=== PATIENT | male | born 1960 | race Caucasian/White ===

== ENCOUNTER 2021-03-06 14:17 | Emergency (ER) | payer MEDICARE, OTHER ==
[~2021-03-06] VITALS: Ht 188 cm; Wt 132.4 kg
--- NOTE | 2021-03-06 14:20 | NUR ---
at bedside for assessment
[2021-03-06] MEDS ORDERED: MECLIZINE HCL 25 MG TABLET PO ONE (14:30)
[2021-03-06] MEDS ORDERED: IV NORMAL SALINE 1000 ML BAG IV ONE (14:30)
[2021-03-06] MEDS ORDERED: ONDANSETRON HCL 4 MG TABLET PO ONE (14:30)
[2021-03-06] MEDS ORDERED: diphenhydrAMINE 50 MG/1 ML VIAL IV ONE (14:45)
[2021-03-06] MEDS ORDERED: METOCLOPRAMIDE HCL 10 MG/2 ML VIAL IV ONE (14:45)
[2021-03-06] MEDS ORDERED: MECLIZINE HCL 25 MG TABLET ONE (14:49)
[2021-03-06] MEDS ORDERED: diphenhydrAMINE 50 MG/1 ML VIAL ONE (14:49)
[2021-03-06] MEDS ORDERED: ONDANSETRON ODT 4 MG TAB.RAPDIS ONE (14:49)
[2021-03-06] MEDS ORDERED: METOCLOPRAMIDE HCL 10 MG/2 ML VIAL ONE (14:50)
--- NOTE | 2021-03-06 14:56 | NUR ---
Patient taken to Radiology for CT
[2021-03-06] MEDS ORDERED: BUSP10TA3 PO (15:05)
[2021-03-06] MEDS ORDERED: GABA600T12 PO (15:05)
[2021-03-06] MEDS ORDERED: ASPI81TA31 PO (15:05)
[2021-03-06] MEDS ORDERED: LORA2TAB95 PO (15:05)
[2021-03-06] MEDS ORDERED: TAMS-3 PO (15:05)
[2021-03-06] MEDS ORDERED: ELVI1TAB3 PO (15:05)
[2021-03-06] MEDS ORDERED: FAMO20TA8 PO (15:05)
[2021-03-06] MEDS ORDERED: OMEG1CAP PO (15:05)
[2021-03-06] MEDS ORDERED: LORA10TA7 PO (15:05)
[2021-03-06] MEDS ORDERED: LURA40TA PO (15:05)
[2021-03-06] MEDS ORDERED: ISOS60TA72 PO (15:05)
[2021-03-06] MEDS ORDERED: NITR0.4T48 SL (15:05)
[2021-03-06 15:11] LABS: HEMATOCRIT 43.8 % (36.7-47.1); MEAN CORPUSCULAR VOLUME 95.1 fL (73.0-96.2); PLATELET COUNT (AUTO) 184 K/uL (152-348)
[2021-03-06] MEDS ORDERED: ALBU2.5V13 IH (15:20)
[2021-03-06] MEDS ORDERED: MIRT-93 PO (15:20)
[2021-03-06] MEDS ORDERED: ATOR20TA PO (15:20)
[2021-03-06] MEDS ORDERED: LOPE2CAP PO (15:20)
[2021-03-06 15:27] LABS: CREATININE 1.1 mg/dL (0.6-1.3); POTASSIUM 3.5 mmol/L (3.5-5.1)
[2021-03-06] MEDS ORDERED: KETOROLAC TROMETHAMINE 30 MG INJ IVP ONE (15:30)
[2021-03-06] MEDS ORDERED: KETOROLAC TROMETHAMINE 30 MG INJ ONE (15:35)
[2021-03-06 15:39] LABS: BILIRUBIN,TOTAL 0.4 mg/dL (0.2-1.0); TOTAL PROTEIN, SERUM 6.8 g/dL (6.4-8.2)
[2021-03-06] MEDS ORDERED: MECL-159 PO (16:17)
--- NOTE | 2021-03-06 16:29 | NUR ---
Called [facility] for transport back to [facility], eta 40 mins.
--- NOTE | 2021-03-06 18:12 | NUR ---
PAtient continues to resting in bed, no signs of acute distress noted
--- NOTE | 2021-03-06 18:58 | NUR ---
Patient noted getting picked up by [facility] and will be returning to center at [facility]
[2021-03-06 19:03] VITALS: BP 122/74
== END 2021-03-06 19:00 ==
LOC: ER 14:17
DX: R51.9 Headache, unspecified (principal); R42 Dizziness and giddiness; J44.9 Chronic obstructive pulmonary disease, unspecified; F31.9 Bipolar disorder, unspecified; E78.5 Hyperlipidemia, unspecified; E66.01 Morbid (severe) obesity due to excess calories; Z68.37 Body mass index [BMI] 37.0-37.9, adult; Z86.711 Personal history of pulmonary embolism; I10 Essential (primary) hypertension; Z90.49 Acquired absence of other specified parts of digestive tract; G20 Parkinson's disease; F17.201 Nicotine dependence, unspecified, in remission; Z79.82 Long term (current) use of aspirin
CPT/HCPCS: 36415; 70450; 71045; 80053; 84484; 85025; 93005; 96361; 96374; 96375; 99285; J1200; J1885; J2765; 70030-TC; A4663; J7030; J8597; Q0162

== ENCOUNTER 2021-09-10 19:50 | Emergency (ER) | payer MEDICARE, OTHER ==
[~2021-09-10] VITALS: Ht 188 cm; Wt 129.3 kg
[~2021-09-10 19:50] MED LIST: ALBU2.5V13 IH; ASPI81TA31 PO; ATOR20TA PO; BUSP10TA3 PO; ELVI1TAB3 PO; FAMO20TA8 PO; GABA600T12 PO; ISOS60TA72 PO; LOPE2CAP PO; LORA10TA7 PO; LORA2TAB95 PO; LURA40TA PO; MECL-159 PO; MIRT-93 PO; NITR0.4T48 SL; OMEG1CAP PO; TAMS-3 PO
--- NOTE | 2021-09-10 20:17 | NUR ---
JERRI BEDS AVAILABLE IN THE ER. PLACED IN HALLWAY WITH [facility] AWAITING FOR BED OPENING.
--- NOTE | 2021-09-10 21:57 | NUR ---
PATIENT PLACED IN ROOM 4A.
[2021-09-10 22:46] LABS: MEAN CORPUSCULAR HEMOGLOBIN 33.4 uug (23.8-33.4); MEAN CORPUSCULAR VOLUME 95.6 fL (73.0-96.2); PLATELET COUNT (AUTO) 159 K/uL (152-348)
[2021-09-10 22:52] LABS: CREATININE 1.1 mg/dL (0.6-1.3); POTASSIUM 3.7 mmol/L (3.5-5.1)
[2021-09-10 23:05] LABS: BILIRUBIN,DIRECT 0.1 mg/dL (0.0-0.2); BILIRUBIN,TOTAL 0.6 mg/dL (0.2-1.0)
--- NOTE | 2021-09-11 01:42 | NUR ---
Called [facility] for transport back to [facility], eta 75-90 minutes
--- NOTE | 2021-09-11 02:49 | NUR ---
[facility] 275 transfered back pt to [facility] in stable condition
[2021-09-11 02:50] VITALS: BP 117/83
== END 2021-09-11 02:50 ==
LOC: ER 19:53
DX: G47.33 Obstructive sleep apnea (adult) (pediatric) (principal); G20 Parkinson's disease; J44.9 Chronic obstructive pulmonary disease, unspecified; Z90.49 Acquired absence of other specified parts of digestive tract; F31.9 Bipolar disorder, unspecified; F20.9 Schizophrenia, unspecified; Z79.899 Other long term (current) drug therapy; Z88.0 Allergy status to penicillin; Z79.82 Long term (current) use of aspirin; K21.9 Gastro-esophageal reflux disease without esophagitis; I25.119 Atherosclerotic heart disease of native coronary artery with unspecified angina pectoris; F17.200 Nicotine dependence, unspecified, uncomplicated; Z84.1 Family history of disorders of kidney and ureter; K51.90 Ulcerative colitis, unspecified, without complications
CPT/HCPCS: 36415; 70030-TC; 71045; 85025; 85651; 93005; A4663

== ENCOUNTER 2021-10-21 17:46 | Inpatient (IN) | payer MEDICARE, OTHER ==
[~2021-10-21] VITALS: Ht 185.4 cm; Wt 126.6 kg
[2021-10-21] MEDS ORDERED: HYDROMORPHONE 1 MG/1 ML DISP.SYRIN IV ONE ×2 (18:15→19:15)
[2021-10-21] MEDS ORDERED: ONDANSETRON 4 MG/2 ML VIAL IV ONE (18:15)
[2021-10-21] MEDS ORDERED: IV NORMAL SALINE 1000 ML BAG IV ONE (18:15)
[2021-10-21] MEDS ORDERED: ONDANSETRON 4 MG/2 ML VIAL ONE (18:27)
[2021-10-21] MEDS ORDERED: HYDROMORPHONE 1 MG/1 ML DISP.SYRIN ONE ×2 (18:27→19:28)
--- NOTE | 2021-10-21 18:36 | NUR ---
Pt signed consent for IV contrasted CT, placed in the chart. coding tech at the bedside for blood draw.
[2021-10-21] MEDS ORDERED: IV NORMAL SALINE 250 ML IV ONE (18:49)
[2021-10-21] MEDS ORDERED: SWABABLE VALVE TRANSFER SET EA MC ONE (18:49)
[2021-10-21] MEDS ORDERED: IOHEXOL 300MG/ML 100 ML INFUS..BTL ONE (18:49)
[2021-10-21] MEDS ORDERED: ATOR20TA PO (18:57)
[2021-10-21] MEDS ORDERED: ACET-2154 PO (18:57)
[2021-10-21] MEDS ORDERED: LORA-258 PO (18:57)
[2021-10-21] MEDS ORDERED: MULT-594 PO (18:57)
[2021-10-21] MEDS ORDERED: BUSP15TA3 PO (18:57)
[2021-10-21] MEDS ORDERED: GABA800T11 PO (18:57)
[2021-10-21] MEDS ORDERED: TRAZ-182 PO (18:57)
[2021-10-21] MEDS ORDERED: HYDR-3980 PO (18:57)
[2021-10-21] MEDS ORDERED: POLY15DR31 EACHEYE (18:57)
[2021-10-21] MEDS ORDERED: METH-806 PO (18:57)
[2021-10-21] MEDS ORDERED: LORA10TA7 PO (18:57)
[2021-10-21] MEDS ORDERED: LIDO1ADH82 TP (18:57)
[2021-10-21] MEDS ORDERED: FOLI1TAB94 PO (18:57)
[2021-10-21] MEDS ORDERED: ZINC220T4 PO (18:57)
[2021-10-21] MEDS ORDERED: VITAMIN D3 PO (18:57)
[2021-10-21] MEDS ORDERED: ACET-73 PO (18:57)
[2021-10-21] MEDS ORDERED: CYAN10006 IJ (18:57)
[2021-10-21] MEDS ORDERED: OMEP20CA15 PO (18:57)
[2021-10-21] MEDS ORDERED: DOCU250C14 PO (18:57)
[2021-10-21] MEDS ORDERED: FLUT16SP16 BNOSTRILS (18:57)
[2021-10-21] MEDS ORDERED: PROP60CA38 PO (18:57)
[2021-10-21 19:01] LABS: HEMATOCRIT 46.8 % (36.7-47.1); MEAN CORPUSCULAR VOLUME 96.8 fL (73.0-96.2); PLATELET COUNT (AUTO) 150 K/uL (152-348)
--- NOTE | 2021-10-21 19:05 | NUR ---
RECEIVED REPORT FROM MICHELLE. PT NOTED TO BE IN BED, A/O X4, NO SOB OR LABORED BREATHING, AFEBRILE. DENIES ANY PAIN/DISCOMFORT AT THIS TIME. CALL LIGHT WITHIN EASY REACH.
[2021-10-21 19:17] LABS: BILIRUBIN,DIRECT 0.1 mg/dL (0.0-0.2); TOTAL PROTEIN, SERUM 7.2 g/dL (6.4-8.2)
[2021-10-21 19:27] LABS: BILIRUBIN,TOTAL 0.4 mg/dL (0.2-1.0); POTASSIUM 3.9 mmol/L (3.5-5.1)
[2021-10-21] MEDS ORDERED: LIDOCAINE 2% (UROJET) 10 ML JELLY MM ONE ×2 (19:45→19:53)
--- NOTE | 2021-10-21 19:50 | NUR ---
CALLED [facility] FOR PICC LINE NURSE, PICC LINE NURSE ETA 0000.
[2021-10-21 20:09] LABS: *BILIRUBIN,URIN NEGATIVE (NEGATIVE); *CLARITY,URINE CLEAR (CLEAR); *COLOR,URINE YELLOW (YELLOW); *KETONES,URINE NEGATIVE (NEGATIVE); *UROBILINOGEN,URINE 0.2 E.U./dl (NORMAL); LEUKOCYTE ESTERASE ,URINE NEGATIVE (NEGATIVE); NITRITE, URINE NEGATIVE (NEGATIVE); UGLUCOSE NEGATIVE (NEGATIVE)
[2021-10-21 20:10] LABS: *BLOOD, URINE TRACE (NEGATIVE)
[2021-10-21 20:12] LABS: BACTERIA,URINE NONE SEEN /HPF (NONE SEEN); RBC,URINE 0-3 /HPF (0-3); SQUAMOUS EPITHELIAL CELL,UR NONE SEEN /HPF (NONE SEEN); WBC,URINE 0-3 /HPF (0-3)
--- NOTE | 2021-10-21 21:16 | NUR ---
PICC LINE INSERTED RIGHT UPPER ARM.
--- NOTE | 2021-10-21 21:28 | NUR ---
PT TAKEN DOWN TO CT.
[2021-10-21] MEDS ORDERED: DIAZEPAM 10 MG/2 ML DISP.SYRIN IV ONE (21:30)
--- NOTE | 2021-10-21 22:00 | NUR ---
PT RETURNED FROM CT, STABLE CONDITION.
--- NOTE | 2021-10-21 22:03 | NUR ---
SPOKE WITH GABO FROM [facility] NOTIFIED THAT PT WILL BE ADMITTED. ATTEMPTED TO CALL [employer] UNABLE TO LEAVE VOICEMAIL, MAILBOX IS FULL.
[2021-10-21] MEDS ORDERED: REMEDY ESSENTIAL ZINC PASTE 113 GM TP PRN (22:30)
[2021-10-21] MEDS ORDERED: ONDANSETRON 4 MG/2 ML VIAL IV PRN (22:30)
[2021-10-21] MEDS ORDERED: ACETAMINOPHEN 325 MG TABLET PO PRN (22:30)
--- NOTE | 2021-10-21 22:31 | NUR ---
GAVE REPORT TO JAYLON.
[2021-10-21 23:00] VITALS: BP 124/71
--- NOTE | 2021-10-21 23:00 | NUR ---
Pt. admitted to MED SURG , under care of [employer]AG[employer] FREIGHT INSPECTOR ALISON BARFIELD DX: ABD PAIN Belongs List completed
[2021-10-21] MEDS ORDERED: LORAZEPAM 0.5 MG TABLET PO PRN (23:15)
[2021-10-21] MEDS ORDERED: NITROGLYCERIN 0.4 MG/TAB BOTTLE SL PRN (23:15)
[2021-10-21] MEDS ORDERED: ALBUTEROL SULFATE 2.5 MG/ 0.5 ML NEBU IH PRN (23:15)
[2021-10-21] MEDS ORDERED: METHOCARBAMOL 500 MG TABLET PO PRN (23:15)
[2021-10-21] MEDS ORDERED: LORATADINE 10 MG TABLET PO PRN (23:15)
[2021-10-21] MEDS ORDERED: POLYVINYL ALCOHOL OPHT DROPS 15 ML BOTTLE EACHEYE PRN (23:15)
[2021-10-22] MEDS: MORPHINE SULFATE 2 MG/1 ML DISP.SYRIN IV PRN ×3 (00:17→21:18)
--- NOTE | 2021-10-22 00:20 | NUR ---
Admitted patient to Tele unit from Er via rney. Awake ALOX4 with chief complaint of abdominal pain.Abdomen diffusely tender in the epigastric region. Noted with old surgical scar in lower mid abdomen.Otherwise skin is intact.Bowel sounds active.Per patient he had BM yesterday morning.c/o abdominal pain and lower back pain.Medicated with morphine IVP.Midline on right upper arm patent and intact. F/c in place draining well.Call light with in reach. VS .Will continue to monitor.
[2021-10-22 04:00] VITALS: BP 120/75
[2021-10-22] MEDS ORDERED: LORAZEPAM 0.5 MG TABLET PO SCH (06:00)
[2021-10-22] MEDS: PANTOPRAZOLE SODIUM 40 MG TABLET.DR PO SCH (06:18)
[2021-10-22 06:35] LABS: HEMATOCRIT 42.5 % (36.7-47.1); MEAN CORPUSCULAR HEMOGLOBIN 32.7 uug (23.8-33.4); MEAN CORPUSCULAR VOLUME 95.7 fL (73.0-96.2); PLATELET COUNT (AUTO) 102 K/uL (152-348)
[2021-10-22 07:23] LABS: PHOSPHOROUS 3.8 mg/dL (2.5-4.9); POTASSIUM 3.8 mmol/L (3.5-5.1)
[2021-10-22] MEDS: FLUTICASONE PROP NASAL SPRAY 16 GM BOTTLE NS SCH (08:58)
[2021-10-22] MEDS: ASPIRIN 81 MG TAB.CHEW PO SCH (08:58)
[2021-10-22] MEDS: DOCUSATE SODIUM 250 MG CAPSULE PO SCH (08:58)
[2021-10-22] MEDS: OMEGA-3 FATTY ACIDS/FISH OIL CAPSULE PO SCH ×2 (08:58→16:32)
[2021-10-22] MEDS: busPIRone 5 MG TABLET PO SCH ×3 (08:58→16:32)
[2021-10-22] MEDS: MULTIVITAMINS,THERAPEUTIC TABLET PO SCH (08:59)
[2021-10-22] MEDS: ZINC SULFATE 220 MG CAPSULE PO SCH (08:59)
[2021-10-22] MEDS: CHOLECALCIFEROL 1,000 UNIT TABLET PO SCH (08:59)
[2021-10-22] MEDS: NICOTINE 21 MG/24HR PATCH TD SCH (08:59)
[2021-10-22] MEDS: PROPRANOLOL LA 60 MG CAP.SA.24H PO SCH (08:59)
[2021-10-22] MEDS: FOLIC ACID 1 MG TABLET PO SCH (08:59)
[2021-10-22] MEDS ORDERED: TAMSULOSIN HCL 0.4 MG CAP.SR.24H PO SCH ×2 (09:00→21:00)
[2021-10-22] MEDS: GABAPENTIN 400 MG CAPSULE PO SCH ×3 (09:00→16:32)
[2021-10-22] MEDS ORDERED: Elviteg/Cobi/Emtric/Tenofo Ala (Genvoya Tablet) 1 EACH) PO SCH (09:00)
[2021-10-22] MEDS: HEPARIN SODIUM,PORCINE 5,000 UNITS/ML VIAL SQ SCH ×2 (09:01→20:07)
--- NOTE | 2021-10-22 10:45 | NUR ---
Received PT awake ALOX4 with chief complaint of abdominal pain.Abdomen soft , distended ,no c/o of pain at this time. skin is intact.Bowel sounds active. patient report he had a BM yesterday morning.Midline on right upper arm patent and intact.PT D/C from TELE to MS. F/c in place draining well.Call light with in reach. VS .Will continue to monitor.
[2021-10-22 11:52] VITALS: BP 125/79
[2021-10-22 16:10] VITALS: BP 117/73
[2021-10-22 20:00] VITALS: BP 117/80
[2021-10-22] MEDS ORDERED: ATORVASTATIN 20 MG TABLET PO SCH (21:00)
[2021-10-22] MEDS ORDERED: TRAZODONE 50 MG TABLET PO SCH (21:00)
[2021-10-23 05:33] VITALS: BP 108/76
[2021-10-23] MEDS: PANTOPRAZOLE SODIUM 40 MG TABLET.DR PO SCH (06:05)
[2021-10-23] MEDS: FLUTICASONE PROP NASAL SPRAY 16 GM BOTTLE NS SCH (08:56)
[2021-10-23] MEDS: ASPIRIN 81 MG TAB.CHEW PO SCH (08:58)
[2021-10-23] MEDS: DOCUSATE SODIUM 250 MG CAPSULE PO SCH (08:59)
[2021-10-23] MEDS: OMEGA-3 FATTY ACIDS/FISH OIL CAPSULE PO SCH (08:59)
[2021-10-23] MEDS: busPIRone 5 MG TABLET PO SCH ×2 (08:59→13:20)
[2021-10-23] MEDS: FOLIC ACID 1 MG TABLET PO SCH (08:59)
[2021-10-23] MEDS: PROPRANOLOL LA 60 MG CAP.SA.24H PO SCH (09:00)
[2021-10-23] MEDS: GABAPENTIN 400 MG CAPSULE PO SCH ×2 (09:00→13:20)
[2021-10-23] MEDS: MULTIVITAMINS,THERAPEUTIC TABLET PO SCH (09:00)
[2021-10-23] MEDS ORDERED: CYANOCOBALAMIN 1,000 MCG TABLET PO SCH (09:00)
[2021-10-23] MEDS: CHOLECALCIFEROL 1,000 UNIT TABLET PO SCH (09:01)
[2021-10-23] MEDS: NICOTINE 21 MG/24HR PATCH TD SCH (09:01)
[2021-10-23] MEDS: ZINC SULFATE 220 MG CAPSULE PO SCH (09:01)
[2021-10-23] MEDS: HEPARIN SODIUM,PORCINE 5,000 UNITS/ML VIAL SQ SCH (09:02)
[2021-10-23] MEDS: MORPHINE SULFATE 2 MG/1 ML DISP.SYRIN IV PRN (09:16)
[2021-10-23] MEDS ORDERED: DOCU250C14 PO (11:10)
[2021-10-23] MEDS ORDERED: ATOR10TA PO (11:10)
[2021-10-23] MEDS ORDERED: TAMS-3 PO (11:10)
[2021-10-23 12:00] VITALS: BP 101/50
[2021-10-23 16:00] VITALS: BP 150/98
--- NOTE | 2021-10-23 17:36 | NUR ---
patient is hemodynamically stable and ready to be discharged back to [facility] facility to continue his treatments.pt discharge home in stable condition ,Discharge instructions and all belonging given to PT ,ID band ,Mid line and Romero Catheter was D/C. PT was transported by [facility].
== END 2021-10-23 17:45 | DRG 394 ==
LOC: ER 17:50 → MEDSURG3 22:41 → TELE3 23:00 → MEDSURG3 10-22 10:36
PROVIDERS: ADMIT Nurse Practitioner Family; ATTEND Internal Medicine
DX: K66.0 Peritoneal adhesions (postprocedural) (postinfection) (principal); D68.59 Other primary thrombophilia; G20 Parkinson's disease; I48.0 Paroxysmal atrial fibrillation; E66.01 Morbid (severe) obesity due to excess calories; E78.5 Hyperlipidemia, unspecified; E86.0 Dehydration; F17.210 Nicotine dependence, cigarettes, uncomplicated; F20.9 Schizophrenia, unspecified; Z93.3 Colostomy status; Z90.49 Acquired absence of other specified parts of digestive tract; I10 Essential (primary) hypertension; J44.9 Chronic obstructive pulmonary disease, unspecified; F31.9 Bipolar disorder, unspecified; K59.00 Constipation, unspecified; M94.0 Chondrocostal junction syndrome [Tietze]; I25.10 Atherosclerotic heart disease of native coronary artery without angina pectoris; K29.70 Gastritis, unspecified, without bleeding; Z74.09 Other reduced mobility; N40.0 Benign prostatic hyperplasia without lower urinary tract symptoms; E66.9 Obesity, unspecified; Z68.36 Body mass index [BMI] 36.0-36.9, adult; Z98.890 Other specified postprocedural states; Z20.822 Contact with and (suspected) exposure to COVID-19
CPT/HCPCS: 36415; 51702; 70030-TC; 71045; 83605; 83690; 83735; 84100; 84153; 85025; 85730; 87040; 87086; 93005; A4663; C1758; G0378; J1170; J1644; J2270; J2405; J3360; J3535; J7030; J7050; Q9967